=== PATIENT | female | born 1955 | race Caucasian/White ===

== ENCOUNTER 2020-08-20 11:38 | Observation (INO) | payer MEDICARE, OTHER ==
[~2020-08-20] VITALS: Ht 165.1 cm; Wt 74.4 kg
[~2020-08-20 11:38] MED LIST: GLUCOPHAGE1000 MG PO; MOBIC15 MG PO; MONOPRIL TAB 1010 MG PO
[2020-08-20 15:17] LABS: RED BLOOD COUNT 3.96 M/UL (4.00-5.10); WHITE BLOOD COUNT 8.6 K/UL (4.5-11.0)
[2020-08-20 15:36] LABS: BUN/CREATININE RATIO 17 (0-10)
[2020-08-20] MEDS ORDERED: BASAGLAR K100 UNIT/1 SC (15:44)
[2020-08-20] MEDS ORDERED: DILTIAZEM 24HR360 MG PO (15:45)
[2020-08-20] MEDS ORDERED: HYDROCODON-ACE1 EAC4 PO (17:00)
[2020-08-20] MEDS ORDERED: LEVOFLOXACIN500 MG PO (17:00)
[2020-08-21] MEDS ORDERED: LOPRESSOR 25 MG25 MG PO (08:15)
== END 2020-08-21 13:28 | disposition home or self-care (01) ==
LOC: MED SURG 4 14:38
PROVIDERS: ADMIT Internal Medicine Cardiovascular Disease
PROC: 0JH606Z Insertion of Pacemaker, Dual Chamber into Chest Subcutaneous Tissue and Fascia, Open Approach (ICD-10-PCS; principal; 2020-08-20)
PROC: 02H63JZ Insertion of Pacemaker Lead into Right Atrium, Percutaneous Approach (ICD-10-PCS; 2020-08-20)
PROC: 02HK3JZ Insertion of Pacemaker Lead into Right Ventricle, Percutaneous Approach (ICD-10-PCS; 2020-08-20)
DX: I49.5 Sick sinus syndrome (principal); I47.2 Ventricular tachycardia; I10 Essential (primary) hypertension; E11.9 Type 2 diabetes mellitus without complications; J44.9 Chronic obstructive pulmonary disease, unspecified; F17.210 Nicotine dependence, cigarettes, uncomplicated; E78.00 Pure hypercholesterolemia, unspecified; J98.4 Other disorders of lung; Z20.822 Contact with and (suspected) exposure to COVID-19; Z79.4 Long term (current) use of insulin; Z79.899 Other long term (current) drug therapy; Z88.5 Allergy status to narcotic agent; Z79.1 Long term (current) use of non-steroidal anti-inflammatories (NSAID)
CPT/HCPCS: ECHO; 33208; 36415; 71045; 80048; 80076; 82962; 83735; 85027; 87635; 93005; 93306; 96374; 99152; 99153; C1785; C1898; G0378; G0379; J0690; J1644; J2250; J3010; J3370; J7040

== ENCOUNTER → 2021-07-09 | Outpatient (CLI) | payer MEDICARE, OTHER ==
[~2021-07-09] MED LIST changes: +BASAGLAR K100 UNIT/1 SC; +DILTIAZEM 24HR360 MG PO; +HYDROCODON-ACE1 EAC4 PO; +LEVOFLOXACIN500 MG PO; +LOPRESSOR 25 MG25 MG PO
== END ==
LOC: RAD 10:04
DX: R10.31 Right lower quadrant pain (principal); R10.2 Pelvic and perineal pain; N17.9 Acute kidney failure, unspecified; I50.9 Heart failure, unspecified; R91.8 Other nonspecific abnormal finding of lung field
CPT/HCPCS: 74022

== ENCOUNTER 2021-08-24 13:37 | Inpatient (IN) | payer MEDICARE, OTHER ==
[~2021-08-24] VITALS: Ht 165.1 cm; Wt 76.2 kg
[~2021-08-24 13:37] MED LIST changes: -BASAGLAR K100 UNIT/1 SC
[2021-08-24 14:47] LABS: HEMOGLOBIN 8.5 gm/dl (12.3-15.3); RED BLOOD COUNT 2.96 M/UL (4.00-5.10); WHITE BLOOD COUNT 6.5 K/UL (4.5-11.0)
[2021-08-25 05:53] LABS: HEMOGLOBIN 7.7 gm/dl (12.3-15.3); WHITE BLOOD COUNT 5.3 K/UL (4.5-11.0)
[2021-08-25 05:55] LABS: RED BLOOD COUNT 2.62 M/UL (4.00-5.10)
[2021-08-25] MEDS ORDERED: BASAGLAR K100 UNIT/1 SC (15:44)
[2021-08-25] MEDS ORDERED: PROAIR DIGIHAL90 MCG INH (16:23)
[2021-08-25] MEDS ORDERED: METOPROLOL TART25 MG PO (16:23)
[2021-08-25] MEDS ORDERED: MACROBID 100 M100 MG PO (16:24)
[2021-08-25] MEDS ORDERED: GLIPIZIDE5 MG PO (16:24)
[2021-08-25] MEDS ORDERED: DILTIAZEM ER180 M1 PO (16:25)
[2021-08-25] MEDS ORDERED: DAILY VALUE1 EACH PO (16:25)
[2021-08-25] MEDS ORDERED: NAPROXEN375 MG PO (16:26)
[2021-08-25] MEDS ORDERED: TYLENOL PM EX-1 EACH PO (16:27)
[2021-08-26 06:52] LABS: HEMOGLOBIN 7.7 gm/dl (12.3-15.3); RED BLOOD COUNT 2.68 M/UL (4.00-5.10)
[2021-08-26 11:14] LABS: HBSAG SCREEN Negative (Negative); HEP A AB, IGM Negative (Negative); HEP B CORE AB, IGM Negative (Negative); HEP C VIRUS AB <0.1 (0.0-0.9)
[2021-08-26 13:14] LABS: ANTI-DSDNA ANTIBODIES 1 IU/mL (0-9)
[2021-08-26 16:14] LABS: COMPLEMENT C3, SERUM 126 mg/dL (82-167)
[2021-08-26 17:09] LABS: ATYPICAL PANCA <1:20 titer (Neg:<1:20); CYTOPLASMIC (C-ANCA) <1:20 titer (Neg:<1:20); PERINUCLEAR (P-ANCA) <1:20 titer (Neg:<1:20)
[2021-08-27 01:09] LABS: COMPLEMENT C4, SERUM 23 mg/dL (12-38)
[2021-08-27 06:36] LABS: HEMOGLOBIN 8.1 gm/dl (12.3-15.3); RED BLOOD COUNT 2.8 M/UL (4.00-5.10); WHITE BLOOD COUNT 6.7 K/UL (4.5-11.0)
[2021-08-27 14:12] LABS: ANTIMYELOPEROXIDASE (MPO) ABS <9.0 U/mL (0.0-9.0); ANTIPROTEINASE 3 (PR-3) ABS <3.5 U/mL (0.0-3.5); ATYPICAL PANCA <1:20 titer (Neg:<1:20); CYTOPLASMIC (C-ANCA) <1:20 titer (Neg:<1:20); PERINUCLEAR (P-ANCA) <1:20 titer (Neg:<1:20)
[2021-08-27 15:12] LABS: ALBUMIN 2.8 g/dL (2.9-4.4); ALPHA-1-GLOBULIN 0.3 g/dL (0.0-0.4); ALPHA-2-GLOBULIN 0.7 g/dL (0.4-1.0); GAMMA GLOBULIN 0.8 g/dL (0.4-1.8); GLOBULIN, TOTAL 2.9 g/dL (2.2-3.9); IMMUNOGLOBULIN A, QN, SERUM 354 mg/dL (87-352); IMMUNOGLOBULIN G, QN, SERUM 799 mg/dL (586-1602); IMMUNOGLOBULIN M, QN, SERUM 111 mg/dL (26-217); M-SPIKE Not Observed g/dL (Not Observed); PROTEIN, TOTAL, SERUM 5.7 g/dL (6.0-8.5)
[2021-08-28 07:51] LABS: HEMOGLOBIN 7.4 gm/dl (12.3-15.3); RED BLOOD COUNT 2.57 M/UL (4.00-5.10); WHITE BLOOD COUNT 6.6 K/UL (4.5-11.0)
[2021-08-30 06:27] LABS: HEMOGLOBIN 7.4 gm/dl (12.3-15.3); RED BLOOD COUNT 2.51 M/UL (4.00-5.10)
[2021-09-01 06:34] LABS: HEMOGLOBIN 7.2 gm/dl (12.3-15.3); RED BLOOD COUNT 2.58 M/UL (4.00-5.10); WHITE BLOOD COUNT 6.7 K/UL (4.5-11.0)
[2021-09-02] MEDS ORDERED: FERROUS GLUCON324 M1 PO (11:33)
[2021-09-02] MEDS ORDERED: BUMETANIDE1 MG PO (11:33)
[2021-09-02] MEDS ORDERED: LOPRESSOR100 MG PO (11:33)
[2021-09-02] MEDS ORDERED: CATAPRES 0.1MG0.1 MG PO (11:33)
[2021-09-02] MEDS ORDERED: HYDRALAZINE HCL50 MG PO (11:33)
== END 2021-09-02 13:09 | disposition home or self-care (01) | DRG 682 ==
LOC: ER1 13:37 → CDU 18:09 → MED SURG 4 18:09
PROVIDERS: Internal Medicine Nephrology; Physician Assistant; Physician Assistant Medical; ADMIT Internal Medicine
PROC: B24BZZZ Ultrasonography of Heart with Aorta (ICD-10-PCS; principal; 2021-08-25)
DX: N17.9 Acute kidney failure, unspecified (principal); I50.33 Acute on chronic diastolic (congestive) heart failure; J96.21 Acute and chronic respiratory failure with hypoxia; I13.0 Hypertensive heart and chronic kidney disease with heart failure and stage 1 through stage 4 chronic kidney disease, or unspecified chronic kidney disease; E87.1 Hypo-osmolality and hyponatremia; J44.1 Chronic obstructive pulmonary disease with (acute) exacerbation; N18.30 Chronic kidney disease, stage 3 unspecified; Z20.822 Contact with and (suspected) exposure to COVID-19; E11.22 Type 2 diabetes mellitus with diabetic chronic kidney disease; F17.210 Nicotine dependence, cigarettes, uncomplicated; I49.5 Sick sinus syndrome; R23.3 Spontaneous ecchymoses; E11.40 Type 2 diabetes mellitus with diabetic neuropathy, unspecified; D50.9 Iron deficiency anemia, unspecified; I16.0 Hypertensive urgency; N04.9 Nephrotic syndrome with unspecified morphologic changes; I27.20 Pulmonary hypertension, unspecified; Z86.73 Personal history of transient ischemic attack (TIA), and cerebral infarction without residual deficits; Z95.0 Presence of cardiac pacemaker; Z90.49 Acquired absence of other specified parts of digestive tract; Z90.710 Acquired absence of both cervix and uterus; Z88.5 Allergy status to narcotic agent; Z82.49 Family history of ischemic heart disease and other diseases of the circulatory system; Z82.3 Family history of stroke; Z80.8 Family history of malignant neoplasm of other organs or systems; Z91.14 Patient's other noncompliance with medication regimen; Z79.4 Long term (current) use of insulin
CPT/HCPCS: ECHO; 36415; 71045; 80048; 80053; 80074; 80307; 81001; 82550; 82553; 82570; 82607; 82728; 82746; 82784; 82962; 83036; 83520; 83540; 83550; 83735; 83874; 83880; 83883; 84155; 84156; 84165; 84484; 85025; 85027; 85610; 85652; 85730; 86038; 86140; 86160; 86162; 86225; 86256; 86334; 87040; 89050; 93005; 93306; 93971; 94640; 94664; 94760; 96374; 96375; 99284; J0360; J1644; J1756; J2405; J7030; J7120; P9047

== ENCOUNTER → 2021-09-11 | Outpatient (CLI) | payer MEDICARE, OTHER ==
[~2021-09-11] MED LIST changes: +BASAGLAR K100 UNIT/1 SC; +BUMETANIDE1 MG PO; +CATAPRES 0.1MG0.1 MG PO; +DAILY VALUE1 EACH PO; +DILTIAZEM ER180 M1 PO; +FERROUS GLUCON324 M1 PO; +GLIPIZIDE5 MG PO; +HYDRALAZINE HCL50 MG PO; +LOPRESSOR100 MG PO; +MACROBID 100 M100 MG PO; +METOPROLOL TART25 MG PO; +NAPROXEN375 MG PO; +PROAIR DIGIHAL90 MCG INH; +TYLENOL PM EX-1 EACH PO
[2021-09-11 14:53] LABS: HEMOGLOBIN 8.1 gm/dl (12.3-15.3); RED BLOOD COUNT 2.74 M/UL (4.00-5.10); WHITE BLOOD COUNT 5.4 K/UL (4.5-11.0)
== END ==
LOC: LAB 13:34
PROVIDERS: Internal Medicine Nephrology
DX: N18.5 Chronic kidney disease, stage 5 (principal)
CPT/HCPCS: 36415; 80069; 82728; 83540; 83550; 85025; 85027